=== PATIENT | female | born 1965 | race Caucasian/White ===

== ENCOUNTER → 2016-11-07 | Outpatient (CLI) | payer BC ==
[2016-11-07 12:44] LABS: THYROID STIMULATING HORMONE 1.66 uIu/ml (0.300-4.500)
== END | disposition home or self-care (01) ==
LOC: C.LABBFT 11:09
PROVIDERS: ATTEND Internal Medicine
DX: E03.9 Hypothyroidism, unspecified (principal)

== ENCOUNTER → 2017-03-08 | Outpatient (CLI) | payer BC ==
[2017-03-08 09:59] LABS: ALT/SGPT 35 U/L (12-78); AST/SGOT 21 U/L (15-37); BLOOD UREA NITROGEN 14 mg/dl (7-18); BUN/CREATININE RATIO 18.1 (10-20); CALCIUM 8.9 mg/dl (8.5-10.1); CARBON DIOXIDE 31 mmol/L (21-32); CHLORIDE 109 mmol/L (98-107); CREATININE 0.79 mg/dl (0.60-1.20); ESTIMATED AVERAGE GLUCOSE 103 mg/dl; GLUCOSE 103 mg/dl (70-99); HA1C FLAG Normal (Normal); POTASSIUM 4.1 mmol/L (3.5-5.1); SODIUM 144 mmol/L (136-145)
[2017-03-08 10:02] LABS: ALB/GLOB RATIO 0.9 (0.9-2); ALKALINE PHOSPHATASE 116 U/L (45-117); CHOLESTEROL 167 mg/dl (0-200); HDL CHOLESTEROL 55 mg/dl; LDL CHOLESTEROL CALCULATED 93 mg/dl; TRIGLYCERIDES 94 mg/dl (0-150); VERY LOW DENSITY LIPOPROT CALC 19 mg/dl
== END | disposition home or self-care (01) ==
LOC: C.LAB 08:35
PROVIDERS: ATTEND Nurse Practitioner
DX: K76.0 Fatty (change of) liver, not elsewhere classified (principal); R73.01 Impaired fasting glucose

== ENCOUNTER → 2017-10-24 | Outpatient (CLI) | payer BC ==
--- NOTE | 2017-10-24 15:32 | MAMMOGRAPHY REPORT ---
BILATERAL DIGITAL SCREENING MAMMOGRAM TOMOSYNTHESIS WITH CAD: 10/24/2017 TECHNIQUE: Breast tomosynthesis in addition to standard 2D mammography was performed. Current study was also evaluated with a Computer Aided Detection (CAD) system. COMPARISON: Comparison is made to exams dated: 09/06/2016 mammogram - , mammogram, 05/04/2014 mammogram, 02/24/2012 mammogram, and 11/28/2008 mammogram. BREAST COMPOSITION: The tissue of both breasts is almost entirely fatty. FINDINGS: No suspicious masses, calcifications, or areas of architectural distortion are noted in ei ther breast. There has been no significant interval change compared to prior exams. IMPRESSION: ACR BI-RADS CATEGORY 1: NEGATIVE There is no mammographic evidence of malignancy. A 1 year screening mammogram is recommended. The pa tient will receive written notification of the results. Approximately 10% of breast cancers are not detected with mammography. A negative mammographic report should not delay biopsy if a clinically suggestive mass is present. Liz Omalley M.D. ah/:10/24/2017 07:33:15 [employer] Operator: Angei MUNOZ(Jared)(M), letter sent: Normal 1/2 BI-RADS Code: ACR BI-RADS Category 1: Negative
== END | disposition home or self-care (01) ==
LOC: C.MAMM 07:03
PROVIDERS: ATTEND Internal Medicine
DX: Z12.31 Encounter for screening mammogram for malignant neoplasm of breast (principal)

== ENCOUNTER 2020-07-20 21:00 | Observation (INO) ==
[2020-07-20] MEDS ORDERED: SODIUM CHLORIDE 0.9% 1000ML 1,000 ML IV ONE (21:17)
[2020-07-20] MEDS ORDERED: ACETAMINOPHEN 1,000 MG/100 ML VIAL IV STA (21:17)
[2020-07-20] MEDS ORDERED: ONDANSETRON INJ 2 MG/ML 2 ML VIAL IV STA (21:30)
[2020-07-20] MEDS ORDERED: ONDANSETRON INJ 2 MG/ML 2 ML VIAL ONE (21:31)
[2020-07-20 22:10] LABS: Basophils # (auto) 0.01 K/uL (0-0.2); Basophils % (auto) 0.1 %; Eosinophils # (auto) 0.01 K/uL (0-0.5); Eosinophils % (auto) 0.1 %; Hematocrit (blood only) 43.4 % (37-47); Hemoglobin 14.3 g/dL (12.0-16.0); Immature Granulocytes # (auto) 0.04 K/uL (0.00-0.02); Immature Granulocytes % (auto) 0.3 %; Lymphocytes # (auto) 0.39 K/uL (1.2-3.4); Lymphocytes % (auto) 2.9 %; Mean Corpuscular Hemoglobin 27.1 pg (25-34); Mean Corpuscular Hgb Conc 32.9 g/dL (32-36); Mean Corpuscular Volume 82.4 fL (80-100); Mean Platelet Volume 10.1 fL (7.4-10.4); Monocytes # (auto) 0.52 K/uL (0.11-0.59); Monocytes % (auto) 3.8 %; Neutrophils # (auto) 12.56 K/uL (1.4-6.5); Neutrophils % (auto) 92.8 %; Platelet Count 150 K/uL (130-400); RDW Coefficient of Variation 16.2 % (11.5-14.5); RDW Standard Deviation 48.6 fL (36.4-46.3); Red Blood Count 5.27 M/uL (4.2-5.4); White Blood Count 13.53 K/uL (4.8-10.8)
[2020-07-20 22:19] LABS: iSTAT Creatinine 0.8 mg/dl (0.6-1.3); iSTAT Ionized Calcium 1.11 mmol/l (1.12-1.32); iSTAT Potassium 3.5 mmol/L (3.3-5.0)
[2020-07-20 22:20] LABS: Partial Thromboplastin Time 28.7 Seconds (21.0-31.0)
[2020-07-20 22:28] LABS: Alanine Aminotransferase 34 U/L (12-78); Albumin Level 4.2 gm/dl (3.4-5.0); Aspartate Aminotransferase 25 U/L (15-37); BUN Creatinine Ratio 11.9 (10-20); Blood Urea Nitrogen 13 mg/dl (7-18); Calcium 9.6 mg/dl (8.5-10.1); Carbon Dioxide 26 mmol/L (21-32); Chloride 103 mmol/L (98-107); Creatinine Clr Calc Pharmacy 81.8 ml/min; Est GFR (African American) 66.9; Est GFR (Non-African American) 57.7; Glucose 131 mg/dl (70-99); Magnesium 1.7 mg/dl (1.8-2.4); Potassium 3.4 mmol/L (3.5-5.1); Sodium 136 mmol/L (136-145)
[2020-07-20 22:33] LABS: Alkaline Phosphatase 118 U/L (45-117); Bilirubin,Total 1.4 mg/dl (0.2-1); Globulin 4.1 gm/dl (2.5-4.0); Total Protein 8.3 gm/dl (6.4-8.2); Troponin I < 0.015 ng/ml (0-0.045)
[2020-07-20 23:05] LABS: Adenovirus PCR Not Detected (NotDetected); Bordetella parapertussis PCR Not Detected (NotDetected); Bordetella pertussis PCR Not Detected (NotDetected); Chlamydia pneumoniae PCR Not Detected (NotDetected); Coronavirus 229E PCR Not Detected (NotDetected); Coronavirus CoV-2 (COVID19)PCR Not Detected (NotDetected); Coronavirus HKU1 PCR Not Detected (NotDetected); Coronavirus NL63 PCR Not Detected (NotDetected); Coronavirus OC43PCR Not Detected (NotDetected); Human Metapneumovirus PCR Not Detected (NotDetected); Influenza A PCR Not Detected (NotDetected); Influenza B PCR Not Detected (NotDetected); Mycoplasma pneumoniae PCR Not Detected (NotDetected); Parainfluenza Virus 1 PCR Not Detected (NotDetected); Parainfluenza Virus 2 PCR Not Detected (NotDetected); Parainfluenza Virus 3 PCR Not Detected (NotDetected); Parainfluenza Virus 4 PCR Not Detected (NotDetected); Respiratory Syncytial VirusPCR Not Detected (NotDetected); Rhinovirus/Enterovirus PCR Not Detected (NotDetected)
[2020-07-20 23:24] LABS: Appearance Urine Clear (Clear); Bilirubin Urine Negative (Negative); Blood Urine Negative (Negative); Color Urine Yellow; Glucose Urine UA Negative (Negative); Ketones Urine Negative (Negative); Leukocyte Esterase Urine Negative (Negative); Nitrite Urine Negative (Negative); Protein Urine Negative (Negative); Specific Gravity Urine 1.015 (1.000-1.030); Urobilinogen Urine Negative (Negative)
--- NOTE | 2020-07-20 23:39 | Emergency Department Note ---
History of Present Illness General Chief complaint: Weakness Stated complaint: WEAKNESS,VOMITING, TEMP 101.8 Time Seen by Provider: 07/20/20 21:16 History of Present Illness Provider complaint: Fever vomiting body aches Onset (ago): day(s) 1 Maximum Pain Intensity: 3 54-year-old female presents emergency department for fever and vomiting. She states today acutely she began having chills and body aches. She then began having vomiting. She denies any headache. She reports a mild cough, no productive cough. No hemoptysis. She denies any shortness of breath or chest pain. She reports minimal abdominal pain. No dysuria or hematuria. Home Medications Home Medications Medication Instructions Recorded Confirmed Type calcium carbonate [Tums] 300 mg PO UD PRN 02/12/19 07/20/20 History ondansetron 4 mg PO QID PRN 02/12/19 07/20/20 History apixaban 5 mg tablet 5 mg PO BID #60 tab 09/10/19 07/20/20 Rx levothyroxine 125 mcg tablet 125 mcg PO QAM #30 tab 09/10/19 07/20/20 Rx Allergies Allergy/AdvReac Type Severity Reaction Status Date / Time latex Allergy Mild SKIN Verified 07/20/20 22:59 IRRITATION nickel Allergy Mild SKIN Verified 07/20/20 22:59 IRRITATION thimerosal Allergy Mild SKIN Verified 07/20/20 22:59 SENSITIVITY/RASH tramadol Allergy Mild VOMITTING Verified 07/20/20 22:59 Past Med/Surg History Medical History Anemia Deep vein thrombosis 04/2018--unknown reason Degenerative disc disease Fatty liver disease, nonalcoholic GERD (gastroesophageal reflux disease) History of colon polyps History of ulcer of large intestine Hypothyroidism Nausea and vomiting after administration of anesthetic agent On anticoagulant therapy eliquis BID Osteoarthritis Pulmonary embolism 04/2018 Surgical History History of bilateral tubal ligation History of colonoscopy History of liver biopsy showed fatty liver disease History of tonsillectomy and adenoidectomy History of tooth extraction History of total hysterectomy with bilateral salpingo-oophorectomy (BSO) laparoscopic Family History Sister Family history of diabetes mellitus Family history of reaction to anesthesia nausea/vomiting Family history of esophageal varices Mother Family history of diabetes mellitus Family hx colonic polyps Social History Smoking Status: Never smoker Second Hand Exposure: Yes (father/ smoke); Hx Alcohol Use: Yes Alcohol type: wine Hx Substance Use: No Preferred Language: Ukrainian Communication Ability: Effective 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 Beliefs That Will Affect Care: None Current Living Situation: Spouse and Family Current Living Situation Comment: Lives with and 2 sons Feels Safe at Home: Yes Review of Systems A total of 10 systems reviewed and were otherwise negative Physical Exam Vital Signs Vital Signs - 24 hr 07/20/20 21:06 07/20/20 21:21 07/20/20 21:28 Temperature 38.7 C H Temperature Source Oral Pulse Rate 129 H 120 H Pulse Rate from SpO2 Sensor 120 H 124 H Respiratory Rate 20 Respiratory Effort / Characteristics Non-Labored Spontaneous Respiratory Depth Normal Respiratory Pattern Regular Blood Pressure 144/73 H 168/90 H Blood Pressure Mean 96 111 Pulse Oximetry 97 94 94 Oxygen Delivery Method Room Air Sepsis Recent Fever Within 48 Hours Yes Sepsis New/Unexplained Change in Mental Status No Sepsis Action Taken by Nursing No Action Required 07/20/20 21:30 07/20/20 21:31 07/20/20 21:40 Temperature Temperature Source Pulse Rate 123 H 114 H Pulse Rate from SpO2 Sensor 125 H 123 H 114 H Respiratory Rate 20 26 H Respiratory Effort / Characteristics Respiratory Depth Respiratory Pattern Blood Pressure 191/89 H Blood Pressure Mean 101 Pulse Oximetry 95 96 98 Oxygen Delivery Method Sepsis Recent Fever Within 48 Hours Sepsis New/Unexplained Change in Mental Status Sepsis Action Taken by Nursing 07/20/20 21:50 07/20/20 22:00 07/20/20 22:10 Temperature Temperature Source Pulse Rate 116 H 115 H 117 H Pulse Rate from SpO2 Sensor 117 H 114 H 116 H Respiratory Rate 34 H 31 H Respiratory Effort / Characteristics Respiratory Depth Respiratory Pattern Blood Pressure Blood Pressure Mean Pulse Oximetry 99 97 94 Oxygen Delivery Method Room Air Sepsis Recent Fever Within 48 Hours Sepsis New/Unexplained Change in Mental Status Sepsis Action Taken by Nursing 07/20/20 22:20 07/20/20 22:24 07/20/20 22:30 Temperature Temperature Source Pulse Rate 111 H 111 H 114 H Pulse Rate from SpO2 Sensor 104 H 111 H 112 H Respiratory Rate 23 Respiratory Effort / Characteristics Respiratory Depth Respiratory Pattern Blood Pressure 98/85 L Blood Pressure Mean 90 Pulse Oximetry 94 94 94 Oxygen Delivery Method Sepsis Recent Fever Within 48 Hours Sepsis New/Unexplained Change in Mental Status Sepsis Action Taken by Nursing 07/20/20 22:31 07/20/20 22:40 07/20/20 22:50 Temperature Temperature Source Pulse Rate 108 H 115 H 108 H Pulse Rate from SpO2 Sensor 108 H 116 H 108 H Respiratory Rate 19 Respiratory Effort / Characteristics Respiratory Depth Respiratory Pattern Blood Pressure 134/81 Blood Pressure Mean 91 Pulse Oximetry 95 94 95 Oxygen Delivery Method Sepsis Recent Fever Within 48 Hours Sepsis New/Unexplained Change in Mental Status Sepsis Action Taken by Nursing 07/20/20 23:00 07/20/20 23:13 07/20/20 23:20 Temperature Temperature Source Pulse Rate 104 H 110 H 105 H Pulse Rate from SpO2 Sensor 105 H 110 H 105 H Respiratory Rate 24 Respiratory Effort / Characteristics Respiratory Depth Respiratory Pattern Blood Pressure 107/78 Blood Pressure Mean 85 Pulse Oximetry 96 94 94 Oxygen Delivery Method Sepsis Recent Fever Within 48 Hours Sepsis New/Unexplained Change in Mental Status Sepsis Action Taken by Nursing 07/20/20 23:30 07/20/20 23:40 07/20/20 23:50 Temperature Temperature Source Pulse Rate 101 H 101 H 107 H Pulse Rate from SpO2 Sensor 101 H 103 H 107 H Respiratory Rate 23 21 Respiratory Effort / Characteristics Respiratory Depth Respiratory Pattern Blood Pressure 154/81 H Blood Pressure Mean 109 Pulse Oximetry 93 92 94 Oxygen Delivery Method Sepsis Recent Fever Within 48 Hours Sepsis New/Unexplained Change in Mental Status Sepsis Action Taken by Nursing Physical Exam GENERAL: She is oriented to person, place, and time. She appears well-developed and well-nourished. She does not appear distressed. HENT: Exam performed. -Head: Normocephalic and atraumatic. -Right Ear: External ear normal. No mastoid tenderness. -Left Ear: External ear normal. No mastoid tenderness. -Mouth/Throat: The oropharynx is clear and moist. No trismus in the jaw. No dental abscesses or uvula swelling. No oropharyngeal exudate or tonsillar abscesses. EYES: Conjunctivae and EOM are normal. Pupils are equal, round, and reactive to light. Right eye exhibits no discharge. Left eye exhibits no discharge. No scleral icterus. NECK: Normal range of motion. Neck supple. No JVD present. No spinous process tenderness present. No carotid bruit present. No rigidity. No tracheal deviation and normal range of motion present. No Brudzinski's sign and no Kernig's sign noted. CV: Tachycardic rate, regular rhythm, normal heart sounds and intact distal pulses. There is no peripheral edema. Palpable radial pulses bue. PULM/CHEST: Effort normal and breath sounds normal. No respiratory distress. No stridor. She has no wheezes. She has no rales. -Chest Wall: She exhibits no tenderness. ABD: The abdomen is soft obese. Bowel sounds are normal. She has no distension. No mass is present. There is no tenderness. There is no rebound, no guarding, no Byrnes's sign and no tenderness at McBurney's point. Rovsig negative MUSC/SKEL: Normal range of motion. There is no peripheral edema, tenderness or deformity. LYMPH: No cervical adenopathy. NEURO: She is alert and oriented to person, place, and time. She has normal strength. No cranial nerve deficit or sensory deficit. Coordination and gait normal. GCS eye subscore is 4. GCS verbal subscore is 5. GCS motor subscore is 6. Cerebellar tests wnl. SKIN: Skin is warm and dry. She is not diaphoretic. PSYCH: She has a normal mood and affect. Behavior is normal. Judgment and tho ught content normal. Course Course 2115: The patient was evaluated in room C5. A complete history and physical exam was performed. Patient was seen in full airborne precautions and a negative pressure room. Cardiac monitoring: An order was placed for continuous cardiac monitoring. The monitor shows a rate of 110 with sinus tachycardia rhythm 2346: On reassessment the patient still tachycardic. She still reporting kamaljit sea. Labs show leukocytosis of 13.5 lactate of 2.1. Total bilirubin is elevated at 1.4. Alkaline phosphatase 118. Procalcitonin 1.76. Urinalysis is negative. Upper respiratory bio fire swab is negative as well as COVID-[address] of the abdomen given the patient's continued tachycardia, nausea, and fever. Will plan for admission. 0052: Patient remains tachycardic. She still reports feeling nauseous and is holding the emesis bag. CT of the abdomen is negative. Patient will be admitted to the [facility] service for intractable nausea and vomiting. Administered Medications Discontinued Medications Acetaminophen (Ofirmev) 1,000 mg in 100 mls @ 400 mls/hr IV NOW STA Stop: 07/20/20 21:31 Last Infusion: 07/20/20 22:29 Dose: 0 mls/hr Documented by: [id number] Admin: 07/20/20 21:55 Dose: 400 mls/hr Documented by: [id number] Sodium Chloride (Nss 1000ml) 1,000 mls @ 999 mls/hr IV .Q1H1M ONE Stop: 07/20/20 22:17 Last Infusion: 07/20/20 22:57 Dose: 0 mls/hr Documented by: [id number] Admin: 07/20/20 21:55 Dose: 999 mls/hr Documented by: [id number] Ioversol (Optiray 320 125ml) 125 ml IV ONCE ONE Stop: 07/21/20 00:36 Last Admin: 07/21/20 00:35 Dose: 117 ml Documented by: [id number] Ondansetron HCl (Ondansetron Inj 2 Mg/Ml 2 Ml Vial) Confirm Administered Dose 4 mg .ROUTE .STK-MED ONE Stop: 07/20/20 21:32 Last Admin: 07/20/20 21:55 Dose: Not Given Documented by: [id number] Ondansetron HCl (Ondansetron Inj 2 Mg/Ml 2 Ml Vial) 4 mg IV NOW STA Stop: 07/20/20 21:31 Last Admin: 07/20/20 21:55 Dose: 4 mg Documented by: [id number] Ondansetron HCl (Ondansetron Inj 2 Mg/Ml 2 Ml Vial) 4 mg IV NOW STA Stop: 07/21/20 00:53 Last Admin: 07/21/20 01:08 Dose: 4 mg Documented by: [id number] Medical Decision Making Laboratory Data Result diagrams: 07/20/20 22:00 07/20/20 22:00 Lab Results 07/20/20 07/20/20 07/20/20 Range/Units 19:45 19:45 21:50 WBC (4.8-10.8) K/uL RBC (4.2-5.4) M/uL Hgb (12.0-16.0) g/dL POC Hgb (12.0-16.0) g/dl Hct (37-47) % POC Hct (37-47) % MCV (80-100) fL MCH (25-34) pg MCHC (32-36) g/dL RDW Std Deviation (36.4-46.3) fL RDW Coeff of Constantino (11.5-14.5) % Plt Count (130-400) K/uL MPV (7.4-10.4) fL Immature Gran % (Auto) % Neut % (Auto) % Lymph % (Auto) % Holt % (Auto) % Eos % (Auto) % Baso % (Auto) % Neut # (Auto) (1.4-6.5) K/uL Lymph # (Auto) (1.2-3.4) K/uL Holt # (Auto) (0.11-0.59) K/uL Eos # (Auto) (0-0.5) K/uL Baso # (Auto) (0-0.2) K/uL Immature Gran # (Auto) (0.00-0.02) K/uL PT (9.0-12.0) Seconds INR (0.9-1.1) APTT (21.0-31.0) Seconds PTT Ratio POC Sodium (135-144) mmol/L Sodium (136-145) mmol/L POC Potassium (3.3-5.0) mmol/L Potassium (3.5-5.1) mmol/L POC Chloride (101-112) mmol/L Chloride (98-107) mmol/L Carbon Dioxide (21-32) mmol/L POC Total CO2 (24-31) mmol/L Anion Gap (3-11) POC Anion Gap (16-25) mmol/L POC BUN (7-18) mg/dl BUN (7-18) mg/dl Creatinine (0.6-1.2) mg/dl POC Creatinine (0.6-1.3) mg/dl Est Cr Clr Drug Dosing ml/min Est GFR ( Amer) Est GFR (Non-Af Amer) BUN/Creatinine Ratio (10-20) Glucose (70-99) mg/dl POC Glucose (other) (70-99) mg/dl Lactate 2.1 H* (0.4-2.0) mmol/L Calcium (8.5-10.1) mg/dl POC Ioniz Calcium Michael (1.12-1.32) mmol/l Magnesium (1.8-2.4) mg/dl Total Bilirubin (0.2-1) mg/dl AST (15-37) U/L ALT (12-78) U/L Alkaline Phosphatase (45-117) U/L Troponin I (0-0.045) ng/ml Total Protein (6.4-8.2) gm/dl Albumin (3.4-5.0) gm/dl Globulin (2.5-4.0) gm/dl Albumin/Globulin Ratio (0.9-2) Procalcitonin (0-0.5) ng/ml Urine Color Urine Appearance (Clear) Urine pH (4.5-7.5) Ur Specific [place] (1.000-1.030) Urine Protein (Negative) Urine Glucose (UA) (Negative) Urine Ketones (Negative) Urine Blood (Negative) Urine Nitrite (Negative) Urine Bilirubin (Negative) Urine Urobilinogen (Negative) Ur Leukocyte Esterase (Negative) Adenovirus (PCR) Not Detected (NotDetected) B. pertussis DNA (PCR) Not Detected (NotDetected) B.parapertussis DNA PCR Not Detected (NotDetected) C. pneumoniae DNA (PCR) Not Detected (NotDetected) Coronavirus OC43 (PCR) Not Detected (NotDetected) Coronavirus HKU1 (PCR) Not Detected (NotDetected) Coronavirus 229E (PCR) Not Detected (NotDetected) COVID-19 Eval Order Dup asRespPanOrdered COVID-19 PCR Not Detected (NotDetected) Coronavirus NL63 (PCR) Not Detected (NotDetected) Human Metapneumovir PCR Not Detected (NotDetected) Influenza Type A (PCR) Not Detected (NotDetected) Influenza Type B (PCR) Not Detected (NotDetected) M. pneumoniae (PCR) Not Detected (NotDetected) Parainfluenza 1 (PCR) Not Detected (NotDetected) Parainfluenza 2 (PCR) Not Detected (NotDetected) Parainfluenza 3 (PCR) Not Detected (NotDetected) Parainfluenza 4 (PCR) Not Detected (NotDetected) RSV (PCR) Not Detected (NotDetected) Entero/Rhino (PCR) Not Detected (NotDetected) 07/20/20 07/20/20 07/20/20 Range/Units 22:00 22:00 22:00 WBC 13.53 H (4.8-10.8) K/uL RBC 5.27 (4.2-5.4) M/uL Hgb 14.3 (12.0-16.0) g/dL POC Hgb (12.0-16.0) g/dl Hct 43.4 (37-47) % POC Hct (37-47) % MCV 82.4 (80-100) fL MCH 27.1 (25-34) pg MCHC 32.9 (32-36) g/dL RDW Std Deviation 48.6 H (36.4-46.3) fL RDW Coeff of Constantino 16.2 H (11.5-14.5) % Plt Count 150 (130-400) K/uL MPV 10.1 (7.4-10.4) fL Immature Gran % (Auto) 0.3 % Neut % (Auto) 92.8 % Lymph % (Auto) 2.9 % Holt % (Auto) 3.8 % Eos % (Auto) 0.1 % Baso % (Auto) 0.1 % Neut # (Auto) 12.56 H (1.4-6.5) K/uL Lymph # (Auto) 0.39 L (1.2-3.4) K/uL Holt # (Auto) 0.52 (0.11-0.59) K/uL Eos # (Auto) 0.01 (0-0.5) K/uL Baso # (Auto) 0.01 (0-0.2) K/uL Immature Gran # (Auto) 0.04 H (0.00-0.02) K/uL PT 11.0 (9.0-12.0) Seconds INR 1.0 (0.9-1.1) APTT 28.7 (21.0-31.0) Seconds PTT Ratio 1.0 POC Sodium (135-144) mmol/L Sodium 136 (136-145) mmol/L POC Potassium (3.3-5.0) mmol/L Potassium 3.4 L (3.5-5.1) mmol/L POC Chloride (101-112) mmol/L Chloride 103 (98-107) mmol/L Carbon Dioxide 26 (21-32) mmol/L POC Total CO2 (24-31) mmol/L Anion Gap 7.0 (3-11) POC Anion Gap (16-25) mmol/L POC BUN (7-18) mg/dl BUN 13 (7-18) mg/dl Creatinine 1.08 (0.6-1.2) mg/dl POC Creatinine (0.6-1.3) mg/dl Est Cr Clr Drug Dosing 81.8 ml/min Est GFR ( Amer) 66.9 Est GFR (Non-Af Amer) 57.7 BUN/Creatinine Ratio 11.9 (10-20) Glucose 131 H (70-99) mg/dl POC Glucose (other) (70-99) mg/dl Lactate (0.4-2.0) mmol/L Calcium 9.6 (8.5-10.1) mg/dl POC Ioniz Calcium Michael (1.12-1.32) mmol/l Magnesium 1.7 L (1.8-2.4) mg/dl Total Bilirubin 1.4 H (0.2-1) mg/dl AST 25 (15-37) U/L ALT 34 (12-78) U/L Alkaline Phosphatase 118 H (45-117) U/L Troponin I < 0.015 (0-0.045) ng/ml Total Protein 8.3 H (6.4-8.2) gm/dl Albumin 4.2 (3.4-5.0) gm/dl Globulin 4.1 H (2.5-4.0) gm/dl Albumin/Globulin Ratio 1.0 (0.9-2) Procalcitonin (0-0.5) ng/ml Urine Color Urine Appearance (Clear) Urine pH (4.5-7.5) Ur Specific [place] (1.000-1.030) Urine Protein (Negative) Urine Glucose (UA) (Negative) Urine Ketones (Negative) Urine Blood (Negative) Urine Nitrite (Negative) Urine Bilirubin (Negative) Urine Urobilinogen (Negative) Ur Leukocyte Esterase (Negative) Adenovirus (PCR) (NotDetected) B. pertussis DNA (PCR) (NotDetected) B.parapertussis DNA PCR (NotDetected) C. pneumoniae DNA (PCR) (NotDetected) Coronavirus OC43 (PCR) (NotDetected) Coronavirus HKU1 (PCR) (NotDetected) Coronavirus 229E (PCR) (NotDetected) COVID-19 Eval Order COVID-19 PCR (NotDetected) Coronavirus NL63 (PCR) (NotDetected) Human Metapneumovir PCR (NotDetected) Influenza Type A (PCR) (NotDetected) Influenza Type B (PCR) (NotDetected) M. pneumoniae (PCR) (NotDetected) Parainfluenza 1 (PCR) (NotDetected) Parainfluenza 2 (PCR) (NotDetected) Parainfluenza 3 (PCR) (NotDetected) Parainfluenza 4 (PCR) (NotDetected) RSV (PCR) (NotDetected) Entero/Rhino (PCR) (NotDetected) 07/20/20 07/20/20 07/20/20 Range/Units 22:00 22:05 23:13 WBC (4.8-10.8) K/uL RBC (4.2-5.4) M/uL Hgb (12.0-16.0) g/dL POC Hgb 15.0 (12.0-16.0) g/dl Hct (37-47) % POC Hct 44 (37-47) % MCV (80-100) fL MCH (25-34) pg MCHC (32-36) g/dL RDW Std Deviation (36.4-46.3) fL RDW Coeff of Constantino (11.5-14.5) % Plt Count (130-400) K/uL MPV (7.4-10.4) fL Immature Gran % (Auto) % Neut % (Auto) % Lymph % (Auto) % Holt % (Auto) % Eos % (Auto) % Baso % (Auto) % Neut # (Auto) (1.4-6.5) K/uL Lymph # (Auto) (1.2-3.4) K/uL Holt # (Auto) (0.11-0.59) K/uL Eos # (Auto) (0-0.5) K/uL Baso # (Auto) (0-0.2) K/uL Immature Gran # (Auto) (0.00-0.02) K/uL PT (9.0-12.0) Seconds INR (0.9-1.1) APTT (21.0-31.0) Seconds PTT Ratio POC Sodium 138 (135-144) mmol/L Sodium (136-145) mmol/L POC Potassium 3.5 (3.3-5.0) mmol/L Potassium (3.5-5.1) mmol/L POC Chloride 101 (101-112) mmol/L Chloride (98-107) mmol/L Carbon Dioxide (21-32) mmol/L POC Total CO2 22 L (24-31) mmol/L Anion Gap (3-11) POC Anion Gap 19.0 (16-25) mmol/L POC BUN 13 (7-18) mg/dl BUN (7-18) mg/dl Creatinine (0.6-1.2) mg/dl POC Creatinine 0.8 (0.6-1.3) mg/dl Est Cr Clr Drug Dosing ml/min Est GFR ( Amer) Est GFR (Non-Af Amer) BUN/Creatinine Ratio (10-20) Glucose (70-99) mg/dl POC Glucose (other) 131 H (70-99) mg/dl Lactate (0.4-2.0) mmol/L Calcium (8.5-10.1) mg/dl POC Ioniz Calcium Michael 1.11 L (1.12-1.32) mmol/l Magnesium (1.8-2.4) mg/dl Total Bilirubin (0.2-1) mg/dl AST (15-37) U/L ALT (12-78) U/L Alkaline Phosphatase (45-117) U/L Troponin I (0-0.045) ng/ml Total Protein (6.4-8.2) gm/dl Albumin (3.4-5.0) gm/dl Globulin (2.5-4.0) gm/dl Albumin/Globulin Ratio (0.9-2) Procalcitonin 1.76 H (0-0.5) ng/ml Urine Color Yellow Urine Appearance Clear (Clear) Urine pH 7.0 (4.5-7.5) Ur Specific [place] 1.015 (1.000-1.030) Urine Protein Negative (Negative) Urine Glucose (UA) Negative (Negative) Urine Ketones Negative (Negative) Urine Blood Negative (Negative) Urine Nitrite Negative (Negative) Urine Bilirubin Negative (Negative) Urine Urobilinogen Negative (Negative) Ur Leukocyte Esterase Negative (Negative) Adenovirus (PCR) (NotDetected) B. pertussis DNA (PCR) (NotDetected) B.parapertussis DNA PCR (NotDetected) C. pneumoniae DNA (PCR) (NotDetected) Coronavirus OC43 (PCR) (NotDetected) Coronavirus HKU1 (PCR) (NotDetected) Coronavirus 229E (PCR) (NotDetected) COVID-19 Eval Order COVID-19 PCR (NotDetected) Coronavirus NL63 (PCR) (NotDetected) Human Metapneumovir PCR (NotDetected) Influenza Type A (PCR) (NotDetected) Influenza Type B (PCR) (NotDetected) M. pneumoniae (PCR) (NotDetected) Parainfluenza 1 (PCR) (NotDetected) Parainfluenza 2 (PCR) (NotDetected) Parainfluenza 3 (PCR) (NotDetected) Parainfluenza 4 (PCR) (NotDetected) RSV (PCR) (NotDetected) Entero/Rhino (PCR) (NotDetected) 07/20/20 Range/Units 23:47 WBC (4.8-10.8) K/uL RBC (4.2-5.4) M/uL Hgb (12.0-16.0) g/dL POC Hgb (12.0-16.0) g/dl Hct (37-47) % POC Hct (37-47) % MCV (80-100) fL MCH (25-34) pg MCHC (32-36) g/dL RDW Std Deviation (36.4-46.3) fL RDW Coeff of Constantino (11.5-14.5) % Plt Count (130-400) K/uL MPV (7.4-10.4) fL Immature Gran % (Auto) % Neut % (Auto) % Lymph % (Auto) % Holt % (Auto) % Eos % (Auto) % Baso % (Auto) % Neut # (Auto) (1.4-6.5) K/uL Lymph # (Auto) (1.2-3.4) K/uL Holt # (Auto) (0.11-0.59) K/uL Eos # (Auto) (0-0.5) K/uL Baso # (Auto) (0-0.2) K/uL Immature Gran # (Auto) (0.00-0.02) K/uL PT (9.0-12.0) Seconds INR (0.9-1.1) APTT (21.0-31.0) Seconds PTT Ratio POC Sodium (135-144) mmol/L Sodium (136-145) mmol/L POC Potassium (3.3-5.0) mmol/L Potassium (3.5-5.1) mmol/L POC Chloride (101-112) mmol/L Chloride (98-107) mmol/L Carbon Dioxide (21-32) mmol/L POC Total CO2 (24-31) mmol/L Anion Gap (3-11) POC Anion Gap (16-25) mmol/L POC BUN (7-18) mg/dl BUN (7-18) mg/dl Creatinine (0.6-1.2) mg/dl POC Creatinine (0.6-1.3) mg/dl Est Cr Clr Drug Dosing ml/min Est GFR ( Amer) Est GFR (Non-Af Amer) BUN/Creatinine Ratio (10-20) Glucose (70-99) mg/dl POC Glucose (other) (70-99) mg/dl Lactate 1.7 (0.4-2.0) mmol/L Calcium (8.5-10.1) mg/dl POC Ioniz Calcium Michael (1.12-1.32) mmol/l Magnesium (1.8-2.4) mg/dl Total Bilirubin (0.2-1) mg/dl AST (15-37) U/L ALT (12-78) U/L Alkaline Phosphatase (45-117) U/L Troponin I (0-0.045) ng/ml Total Protein (6.4-8.2) gm/dl Albumin (3.4-5.0) gm/dl Globulin (2.5-4.0) gm/dl Albumin/Globulin Ratio (0.9-2) Procalcitonin (0-0.5) ng/ml Urine Color Urine Appearance (Clear) Urine pH (4.5-7.5) Ur Specific [place] (1.000-1.030) Urine Protein (Negative) Urine Glucose (UA) (Negative) Urine Ketones (Negative) Urine Blood (Negative) Urine Nitrite (Negative) Urine Bilirubin (Negative) Urine Urobilinogen (Negative) Ur Leukocyte Esterase (Negative) Adenovirus (PCR) (NotDetected) B. pertussis DNA (PCR) (NotDetected) B.parapertussis DNA PCR (NotDetected) C. pneumoniae DNA (PCR) (NotDetected) Coronavirus OC43 (PCR) (NotDetected) Coronavirus HKU1 (PCR) (NotDetected) Coronavirus 229E (PCR) (NotDetected) COVID-19 Eval Order COVID-19 PCR (NotDetected) Coronavirus NL63 (PCR) (NotDetected) Human Metapneumovir PCR (NotDetected) Influenza Type A (PCR) (NotDetected) Influenza Type B (PCR) (NotDetected) M. pneumoniae (PCR) (NotDetected) Parainfluenza 1 (PCR) (NotDetected) Parainfluenza 2 (PCR) (NotDetected) Parainfluenza 3 (PCR) (NotDetected) Parainfluenza 4 (PCR) (NotDetected) RSV (PCR) (NotDetected) Entero/Rhino (PCR) (NotDetected) Imaging Data My Impression: Chest x-ray: Airway clear. No pneumothorax. No consolidation. No cardiomegaly or cephalization.. No free air under the diaphragm. No fractures of the skeletal structures. KUB: No air-fluid levels. Radiologist's Impression: PreliminaryFindingsOnly See Final Report For Complete Findings CT ABDOMEN & PELVIS With Contrast: Comparison:CT abdomen and pelvis 08/06/19. Small sliding-type hiatal hernia. Stable small hypoattenuating lesion medial right hepatic lobe. Gallbladder, pancreas, adrenal glands, and kidneys are unremarkable. Splenomegalymeasuring 16.5 cm. Normal appendix. No bowel obstruction or inflammation. Hysterectomy. Normal urinarybladder. No acute osseous findings. Radiologist: Mikala Tracy M.D. Study ready at 00:38 and initial results transmitted at 00:49 ECG Data Indication: + other (Sepsis) Rate (beats per minute): 114 Rhythm: + sinus tachycardia ECG Intervals/blocks: + Normal QRS, + Normal VT and + Normal QT-c ECG ST segments: + Normal ST segments ECG Findings: + LVH MDM Narrative 2116: The patient was evaluated in room C5. A complete history and physical exam was performed. Patient was seen in full airborne precautions and a negative pressure room. Cardiac monitoring: An order was placed for continuous cardiac monitoring. The monitor shows a rate of 110 with sinus tachycardia rhythm 2346: On reassessment the patient still tachycardic. She still reporting nausea. Labs show leukocytosis of 13.5 lactate of 2.1. Total bilirubin is elevated at 1.4. Alkaline phosphatase 118. Procalcitonin 1.76. Urinalysis is negative. Upper respiratory bio fire swab is negative as well as COVID-[address] of the abdomen given the patient's continued tachycardia, nausea, and fever. Will plan for admission. 0052: Patient remains tachycardic. She still reports feeling nauseous and is ho lding the emesis bag. CT of the abdomen is negative. Patient will be admitted to the [facility] service for intractable nausea and vomiting. Impression & Plan Intractable nausea and vomiting, SIRS (systemic inflammatory response syndrome), Jaundice, Lactic acidemia Discharge Plan Visit Data Chief Complaint: Weakness Stated Complaint: WEAKNESS,VOMITING, TEMP 101.8 ED Provider: Neil Schultz Discharge Problem: Intractable nausea and vomiting, SIRS (systemic inflammatory response syndrome), Jaundice, Lactic acidemia Patient Disposition: Being Evaluated by Hospitalist Forms Stand Alone Forms: My [facility] Prescriptions Prescriptions: No Action Eliquis 5 mg tablet 5 mg PO BID Qty: 60 RF: 11 levothyroxine 125 mcg tablet 125 mcg PO QAM Qty: 30 RF: 11 calcium carbonate [Tums] 300 mg (750 mg) Tablet,Chewable 300 mg PO UD PRN (Reason: Acid Reflux) RF: 0 ondansetron 4 mg Tablet,Disintegrating 4 mg PO QID PRN (Reason: nausea) RF: 0 Referrals Referrals: Armin Mckoy III, MD [Primary Care Provider] -
[2020-07-21] MEDS ORDERED: OPTIRAY 320 125ml IV ONE (00:35)
[2020-07-21] MEDS ORDERED: ONDANSETRON INJ 2 MG/ML 2 ML VIAL IV STA (00:52)
[2020-07-21] MEDS ORDERED: ALUMINUM/MAGNESIUM SUSP 30 ML UDC PO PRN (01:24)
[2020-07-21] MEDS ORDERED: ACETAMINOPHEN 325 MG TAB PO PRN (01:24)
[2020-07-21] MEDS ORDERED: ONDANSETRON INJ 2 MG/ML 2 ML VIAL IV PRN (01:24)
[2020-07-21] MEDS ORDERED: POLYETHYLENE (MIRALAX) 17 GM PACK PO PRN (01:24)
[2020-07-21] MEDS ORDERED: ENOXAPARIN 0.5 MG/KG SQ SCH (01:30)
--- NOTE | 2020-07-21 02:00 | History & Physical Report ---
Date of Service July 21, 2020 Assessment & Plan Admission and Anticipated Discharge Date Admission Date: Luda Cornejo is a 54 year old woman with PMH of DVT with PE currently on apixaban obesity, and hypothyroidism here with a fever and vomiting Vomiting and Fever Patient with a benign exam negative urinalysis, CXR and CT abdomen pelvis No meningeal or neurological signs Viral gastroenteritis probably most likely diagnosis Patient also with splenomegaly and positive procalcitonin and elevated white count Will get blood cultures and check monospot test HIstory of VTE No evidence for DVT /PE at present, but patient is tachycardic Likely secondary to dehydration/febrile illness Continuing home apixaban F/E/N: Regular diet DVT PPx: Apixaban Dispo: Admit to med surg blood cultures x2 Full Code History of Present Illness Chief Complaint: Fever, Nausea, body aches Primary Care Provider: Armin Mckoy MD Luda Cornejo is a [age] year old woman with a past medical history significant for saddle embolus and DVT on apixaban and hypothyroidism. She has been in her usual state of health up until mid day 07/20 and patient started having lower limb aches that progressed to whole body joint and muscle aches. 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 She lives with her and two sons who have not had fever though started having diarrhea today. She then developed belly pain and started having non bilious non bloody vomiting. She had four episodes of vomiting and she developed a fever. She called her primary care provider who advised her to come to [facility] for COVID testing. On arrival to ED patient febrile as high as 38.7, tachycardic to 102, patient given 1L NSS and zofran IV for nausea but no further episodes of vomiting. Labwork significant for negative urinalysis, elevated white count of 13.53, slightly decreased magnesium and potassium and an elevated procalcitonin to 1.76. On full review of systems patient denies everything except fever, body aches, and nausea and vomiting as noted above, of note patient has not had diarrhea, abdominal pain, shortness of breath, cough, she does have a history of constipation and noticed some blood with wiping last week but she attributes this to a hemorrhoid. Lives with and two sons, non smoker, non drinker, occasional alcoholic drink here and there but never more than 1-2 in a week. Full Code. Allergies Allergy/AdvReac Type Severity Reaction Status Date / Time latex Allergy Mild SKIN Verified 07/20/20 22:59 IRRITATION nickel Allergy Mild SKIN Verified 07/20/20 22:59 IRRITATION thimerosal Allergy Mild SKIN Verified 07/20/20 22:59 SENSITIVITY/RASH tramadol Allergy Mild VOMITTING Verified 07/20/20 22:59 Home Medications Home Medications Medication Instructions Recorded Confirmed Type calcium carbonate [Tums] 300 mg PO UD PRN 02/12/19 07/20/20 History ondansetron 4 mg PO QID PRN 02/12/19 07/20/20 History apixaban 5 mg tablet 5 mg PO BID #60 tab 09/10/19 07/20/20 Rx levothyroxine 125 mcg tablet 125 mcg PO QAM #30 tab 09/10/19 07/20/20 Rx Past Med/Surg History Medical History Anemia Deep vein thrombosis 04/2018--unknown reason Degenerative disc disease Fatty liver disease, nonalcoholic GERD (gastroesophageal reflux disease) History of colon polyps History of ulcer of large intestine Hypothyroidism Nausea and vomiting after administration of anesthetic agent On anticoagulant therapy eliquis BID Osteoarthritis Pulmonary embolism 04/2018 Surgical History History of bilateral tubal ligation History of colonoscopy History of liver biopsy showed fatty liver disease History of tonsillectomy and adenoidectomy History of tooth extraction History of total hysterectomy with bilateral salpingo-oophorectomy (BSO) laparoscopic Family History Sister Family history of diabetes mellitus Family history of reaction to anesthesia nausea/vomiting Family history of esophageal varices Mother Family history of diabetes mellitus Family hx colonic polyps Social History Smoking Status: Never smoker Second Hand Exposure: No; Hx Alcohol Use: Yes Alcohol type: beer, wine and hard liquor Hx Substance Use: No Preferred Language: Slovak Communication Ability: Effective Dual Rate Supervisor Required: No Beliefs That Will Affect Care: None marital status: Current Living Situation: Alone Current Living Situation Comment: Lives with and 2 sons Feels Safe at Home: Yes Review of Systems Review of Systems: All systems reviewed & are unremarkable except as noted in HPI & below Physical Exam Constitutional: well developed, well nourished and + obese; no acute distress and not ill appearing Eyes: PERRL, conjunctivae normal, anicteric sclerae ENMT: external ear and nose normal, oropharynx normal Respiratory: normal respiratory effort, lungs clear to auscultation Cardiovascular: RRR, no murmur, no edema Gastrointestinal (Abdomen): normal bowel sounds, soft, nontender, no hepatosplenomegaly Skin: no rashes, warm and dry Neurologic: patellar DTR's 2+ bilat, sensation intact and PERRL, EOMI, accommodation nl, no face palsy, no dysarthria CN's II-XI intact bilaterally; no meningeal signs Results & Data Results & Data ([facility]) Vital Signs (Past 12 Hours) Vital Signs Temp Pulse Resp BP Pulse Ox 07/21/20 01:40 102 H 20 91 07/21/20 01:31 102 H 95 07/21/20 01:30 102 H 23 138/68 92 07/21/20 01:20 103 H 17 94 07/21/20 01:10 102 H 24 94 07/21/20 01:07 139/82 93 07/21/20 01:06 93 07/20/20 23:50 107 H 21 94 07/20/20 23:40 101 H 23 92 07/20/20 23:30 101 H 154/81 H 93 07/20/20 23:20 105 H 94 07/20/20 23:13 110 H 94 07/20/20 23:00 104 H 24 107/78 96 07/20/20 22:50 108 H 95 07/20/20 22:40 115 H 19 94 07/20/20 22:31 108 H 134/81 95 07/20/20 22:30 114 H 23 94 07/20/20 22:24 111 H 98/85 L 94 07/20/20 22:20 111 H 94 07/20/20 22:10 117 H 94 07/20/20 22:00 115 H 31 H 97 07/20/20 21:50 116 H 34 H 99 07/20/20 21:40 114 H 26 H 98 07/20/20 21:31 123 H 20 191/89 H 96 07/20/20 21:30 95 07/20/20 21:28 94 07/20/20 21:21 120 H 168/90 H 94 07/20/20 21:06 38.7 C H 129 H 20 144/73 H 97 Code Status & VTE Plan VTE Prophylaxis Plan VTE Prophylaxis will be ordered: Yes Supervising Physician Co-Signing Physician Notes Attending addendum: I have physically seen this patient, have supervised the medical residents activities, and agree with the H&P unless as otherwise noted. Assessment and Plan: Febrile illness/nausea vomiting- CT abdomen pelvis negative except for splenomegaly Symptoms most consistent with viral gastroenteritis. Order a Monospot test. Follow blood cultures Placed on IV fluids Admit to medical surgical floor History of venous thromboembolism- Continue apixaban Remainder of orders and notations as noted Resident Activity Tracking Resident Involvement: Resident Care Provided Care Provided: Adult Hospital Medicine
[2020-07-21] MEDS: LACTATED RINGER'S 1,000 ML IV SCH ×3 (02:40→14:42)
[2020-07-21 05:56] LABS: Basophils # (auto) 0.01 K/uL (0-0.2); Basophils % (auto) 0.1 %; Hematocrit (blood only) 38.8 % (37-47); Hemoglobin 12.6 g/dL (12.0-16.0); Immature Granulocytes # (auto) 0.03 K/uL (0.00-0.02); Immature Granulocytes % (auto) 0.2 %; Lymphocytes # (auto) 0.51 K/uL (1.2-3.4); Lymphocytes % (auto) 3.4 %; Mean Corpuscular Hemoglobin 26.9 pg (25-34); Mean Corpuscular Hgb Conc 32.5 g/dL (32-36); Mean Corpuscular Volume 82.9 fL (80-100); Mean Platelet Volume 10.3 fL (7.4-10.4); Monocytes # (auto) 0.65 K/uL (0.11-0.59); Monocytes % (auto) 4.3 %; Neutrophils # (auto) 13.93 K/uL (1.4-6.5); Platelet Count 151 K/uL (130-400); RDW Coefficient of Variation 16.2 % (11.5-14.5); RDW Standard Deviation 48.8 fL (36.4-46.3); Red Blood Count 4.68 M/uL (4.2-5.4); White Blood Count 15.13 K/uL (4.8-10.8)
[2020-07-21 06:26] LABS: BUN Creatinine Ratio 13.1 (10-20); Calcium 8.8 mg/dl (8.5-10.1); Est GFR (African American) 89.4; Est GFR (Non-African American) 77.1; Potassium 3.5 mmol/L (3.5-5.1)
[2020-07-21] MEDS ORDERED: LEVOTHYROXINE SODIUM 125 MCG TABLET PO SCH (06:30)
--- NOTE | 2020-07-21 06:35 | XRay Report ---
XR chest 1V portable, XR KUB/Abdomen 1 view HISTORY: 54 years-old Female SEPSIS acute sepsis COMPARISON: CT abdomen and pelvis of same day TECHNIQUE: Portable AP view of the chest with KUB radiograph FINDINGS: CHEST: Cardiomediastinal and hilar silhouettes are within normal limits. Minimal linear subsegmental left ba silar atelectasis. There is no pneumothorax, pleural effusion, airspace consolidation or overt pulmon leslee edema. Bones appear grossly intact. KUB: There is no pneumatosis or pneumoperitoneum. Bowel gas pattern is nonobstructive. Nondilated likely p hysiologic air-filled loops of small bowel. No urolith or acute fracture. Lumbar levoscoliosis. Hepat osplenomegaly. IMPRESSION: 1. No acute processes of the chest. 2. Nonobstructive bowel gas pattern. 3. Hepatosplenomegaly. ACT 112: Negative or not required by law. The above report was generated using voice recognition software. It may contain grammatical, syntax o r spelling errors. Electronically signed by: Erwin Rodriguez M.D. 07/21/2020 6:33 AM
--- NOTE | 2020-07-21 07:17 | CT Scan Report ---
CT abd pelvis IV con only CLINICAL HISTORY: fever vomitting COMPARISON STUDY: 08/06/2019 TECHNIQUE: Patient was scanned in a dynamic helical fashion during intravenous administration of 117 cc of Optiray 320 A dose lowering technique was utilized adhering to the principles of ALARA. CT DOSE: 1971.49 mGy.cm FINDINGS: Lower chest: There are basilar atelectatic changes. There is small sliding hiatal hernia. Liver: There is hepatic steatosis. There is a stable 12 mm hypodensity within the right hepatic lobe Gallbladder: Unremarkable. Spleen: The spleen is enlarged measuring 14.5 cm. 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 Adrenal glands: Unremarkable. Kidneys: There is symmetric renal cortical enhancement. The kidneys are normal in size without hydron ephrosis. Bowel: There are no transition zones indicate bowel obstruction. There is colonic diverticulosis. The re is no evidence of acute diverticulitis. There is no evidence of acute appendicitis. Peritoneum: There is no intraperitoneal free air or abdominal ascites. There is a tiny fat-containing umbilical hernia Vasculature: The abdominal aorta is normal in course and caliber. Adenopathy: None. Pelvic viscera: The patient is status post a prior hysterectomy. Skeletal structures: No destructive osseous lesions are seen. IMPRESSION: 1. No acute intra-abdominal or pelvic findings 2. No evidence of bowel obstruction. No evidence of free air 3. Hepatic steatosis and splenomegaly 4. No evidence of acute appendicitis. No evidence of acute diverticulitis. ACT 112: Negative or not required by law. Electronically signed by: Noble Kruse M.D. 07/21/2020 7:16 AM
--- NOTE | 2020-07-21 08:36 | Electrocardiogram Report ---
Test Reason : Blood Pressure : / mmHG Vent. Rate : 114 BPM Atrial Rate : 114 BPM P-R Int : 160 ms QRS Dur : 098 ms QT Int : 330 ms P-R-T Axes : 039 -29 072 degrees QTc Int : 454 ms Poor data quality, interpretation may be adversely affected Sinus tachycardia Left atrial enlargement Left ventricular hypertrophy with repolarization abnormality Abnormal ECG No previous ECGs available Confirmed by Tobin Pedroza ([id number]) on 07/21/2020 8:35:58 AM Referred By: REFERRED SELF Confirmed By:Tobin Pedroza
[2020-07-21] MEDS ORDERED: APIXABAN 5 MG TABLET PO SCH (09:00)
--- NOTE | 2020-07-21 14:41 | Med Student Discharge Summary ---
Date of Service July 21, 2020 Admission HPI Per Admitting Provider Luda Cornejo is a [age] year old woman with a past medical history significant for saddle embolus and DVT on apixaban and hypothyroidism. She has been in her usual state of health up until mid day 07/20 and patient started having lower limb aches that progressed to whole body joint and muscle aches. 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 She lives with her and two sons who have not had fever though started having diarrhea today. She then developed belly pain and started having non bilious non bloody vomi ting. She had four episodes of vomiting and she developed a fever. She called her primary care provider who advised her to come to [facility] for COVID testing. On arrival to ED patient febrile as high as 38.7, tachycardic to 102, patient given 1L NSS and zofran IV for nausea but no further episodes of vomiting. Labwork significant for negative urinalysis, elevated white count of 13.53, slightly decreased magnesium and potassium and an elevated procalcitonin to 1.76. On full review of systems patient denies everything except fever, body aches, and nausea and vomiting as noted above, of note patient has not had diarrhea, abdominal pain, shortness of breath, cough, she does have a history of constipation and noticed some blood with wiping last week but she attributes this to a hemorrhoid. Lives with and two sons, non smoker, non drinker, occasional alcoholic drink here and there but never more than 1-2 in a week. Full Code. Admission Exam (Per Admitting) Constitutional She is oriented to person, place, and time. She appears well-developed and well- nourished. She does not appear distressed. Eyes EYES: Conjunctivae and EOM are normal. Pupils are equal, round, and reactive to light. Right eye exhibits no discharge. Left eye exhibits no discharge. No scleral icterus. ENMT Head: Normocephalic and atraumatic. -Right Ear: External ear normal. No mastoid tenderness. -Left Ear: External ear normal. No mastoid tenderness. -Mouth/Throat: The oropharynx is clear and moist. No trismus in the jaw. No dental abscesses or uvula swelling. No oropharyngeal exudate or tonsillar abscesses. NECK: Normal range of motion. Neck supple. No JVD present. No spinous process tenderness present. No carotid bruit present. No rigidity. No tracheal deviation and normal range of motion present. No Brudzinski's sign and no Kernig's sign noted. Respiratory Effort normal and breath sounds normal. No respiratory distress. No stridor. She has no wheezes. She has no rales. Cardiovascular Tachycardic rate, regular rhythm, normal heart sounds and intact distal pulses. There is no peripheral edema. Palpable radial pulses bue. Gastrointestinal (Abdomen) ABD: The abdomen is soft obese. Bowel sounds are normal. She has no distension. No mass is present. There is no tenderness. There is no rebound, no guarding, no Byrnes's sign and no tenderness at McBurney's point. Rovsig negative Musculoskeletal Normal range of motion. There is no peripheral edema, tenderness or deformity. Skin Skin is warm and dry. She is not diaphoretic. Neurologic She is alert and oriented to person, place, and time. She has normal strength. No cranial nerve deficit or sensory deficit. Coordination and gait normal. GCS eye subscore is 4. GCS verbal subscore is 5. GCS motor subscore is 6. Cerebellar tests wnl. Psychiatric She has a normal mood and affect. Behavior is normal. Judgment and thought content normal. Lymphatic No cervical adenopathy. Discharge Data Consultations 07/21/20 00:52 ED Decision to Admit Stat PE (07/21/20) Eyes: PERRL HEENT: no erythema in throat Neuro: 1+ bilateral reflexes Cardio: RRR with no murmurs, rubs, clicks, or gallops. No carotid bruits. Normal capillary refill. No pedal edema Pulm: normal breath sounds on auscultation. No wheezing GI: no pain on palpation. Bowel sounds present. Negative murphys. Hospital Course (1) Intractable nausea and vomiting: Since yesterday (07/20/20) pt has not had any more incidences of vomiting or nausea. Overall, pt feels much better today. Pt is afebrile today with little to no constitutional symptoms. Most likely etiology of pt's current symptoms is viral gastroenteritis. Pt is instructed that no treatment is needed and that there is a chance that the pt might experience some diarrhea in the next couple days but it should resolve by the end of the weekend. Pt is instructed that if the diarrhea persists beyond Friday that she should contact us or her PCP. (2) Leukocytosis: Pt presented with an elevated WBC of 15.13. Elevated WBC is most likely due to vomiting. Pt is instructed to get repeat WBC in her follow up with PCP to make sure WBC is no longer elevated. Discharge Plan Discharge Items Patient Disposition: Home - Self-Care Reason For Visit: NAUSEA VOMITING FEVER Discharge Diagnosis: gastroenteritis Activity: Per Instructions section Non-emergency contact: Primary Care Provider Call non-emergency contact if: your symptoms worsen Follow-up/Referrals: Armin Mckoy III, MD [Primary Care Provider] - 07/27/20 2:00 pm Diet: Regular Addtl Attending Provider Instructions: Nausea and vomiting You had chills, and vomiting, with other family members that were also experiencing diarrhea. Given that you have a sick contact it is likely that you had an infection with a viral microbe. Luckily these infections are usually start quickly and quickly improve. You improved in the hospital with fluid and a medication for nausea (Zofran). When you go home you will need to ensure that you are drinking plenty of fluids and slowly increasing your diet from more bland foods to a more regular diet over the next day or two. You should expect to feel better over the next day or two. you may have some diarrhea as the virus works through your GI tract. If you develop dehydration from vomiting we will want you to call or come in to get evaluated. Pending Studies at Discharge: Yes Studies:: blood cultures Visit Report Forms: Smoking Cessation Stand-Alone Forms: My [facility], Smoking Cessation Medications and DC Order Prescriptions: Continued Eliquis 5 mg tablet 5 mg PO BID Qty: 60 RF: 11 levothyroxine 125 mcg tablet 125 mcg PO QAM Qty: 30 RF: 11 calcium carbonate [Tums] 300 mg (750 mg) Tablet,Chewable 300 mg PO UD PRN (Reason: Acid Reflux) RF: 0 ondansetron 4 mg Tablet,Disintegrating 4 mg PO QID PRN (Reason: nausea) RF: 0 Discharge Orders: Discharge Order (Routine); Ordered 07/21/20 Ordered By: Charles Breen/Other Patient Handouts: Nausea Vomit Control, Self-Care for Vomiting and Diarrhea, Anatomy of the Digestive System Admission Data Admit Date/Time: 07/21/20 01:25 Attending Provider: Pio Ribera Admit Provider: Bartolo Tenorio Primary Care Provider: Armin Mckoy III Other Providers: Juancarlos Valenzuela Other Interventions: Discharge Summary Assessment (RN) Last Done: 07/21/20 16:11 Supervising Attestation I personally examined the patient and verified all leal points of history and exam, discussed case, and agree with decision making with Jared Mack MS2. feeling better ate better fevers resolved. wants to go home vitals noted nad heent breathing unlabored no accessory muscles good effort skin no rashes no pallor or icterus viral gastroenteritis -improving, stable for home -repeat CMP 1-2wks leukocytosis -probably demargination from vomiting - but will want to recheck in ~1-2wks to ensure return to normal stable for home repeat labs (CBC, CMP) ~2wks
--- NOTE | 2020-07-21 19:58 | Billing Data ---
Date of Service July 21, 2020 Coding Level of Care Code 73497 OBS Care - Discharge
--- NOTE | 2020-07-22 17:37 | Billing Data ---
Date of Service July 22, 2020 Coding Level of Care Code 66284 OBS Care - Level 3
[2020-07-24 13:21] LABS: EBV Nuclear Ag Antibody >600.00 U/mL; EBV Virus Capsid Ag IgG Ab >750.00 U/mL; Epstein Barr Virus Early Ag Ab >150.00 U/mL
== END 2020-07-21 16:32 | disposition home or self-care (01) ==
LOC: 3N 21:00 → ED 21:00 → SUATTDRO 07-21 01:25 → 3N 07-21 01:49